=== PATIENT | female | born 1975 | race Caucasian/White ===

== ENCOUNTER 2021-05-10 05:39 | Outpatient (CLI) | payer BC ==
[~2021-05-10] VITALS: Ht 162.6 cm; Wt 80.0 kg
[2021-05-11] MEDS ORDERED: MULT-593 PO (13:55)
[2021-05-11] MEDS ORDERED: ASCO-262 PO (13:55)
[2021-05-11] MEDS ORDERED: CHOL-34 PO (13:55)
[2021-05-11] MEDS ORDERED: OMEP20CA18 PO (13:55)
[2021-05-11] MEDS ORDERED: CYAN250010 PO (13:55)
== END 2021-05-11 14:00 | disposition home or self-care (01) ==
LOC: PREOP 05:39
PROVIDERS: ATTEND Obstetrics & Gynecology
DX: Z01.818 Encounter for other preprocedural examination (principal)

== ENCOUNTER 2021-05-18 05:52 | Day surgery (SDC) | payer BC ==
[~2021-05-18] VITALS: Ht 162.6 cm; Wt 80.0 kg
[2021-05-18] VITALS (19 sets, daily range): BP systolic 77–135; BP diastolic 49–94
[~2021-05-18 05:52] MED LIST: ASCO-262 PO; CHOL-34 PO; CYAN250010 PO; MULT-593 PO; OMEP20CA18 PO
[2021-05-18] MEDS: LACTATED RINGERS 1,000 ML IV PRN ×3 (06:30→09:44)
[2021-05-18 06:38] LABS: BASOPHILS % (AUTO) 1 % (0-10); EOSINOPHILS # (AUTO) 0.1 10^3/uL (0.0-0.3); EOSINOPHILS % (AUTO) 1 % (0-10); HEMATOCRIT 38 % (35-52); HEMOGLOBIN 12.9 g/dL (11.5-16.0); LYMPHOCYTES # (AUTO) 1.6 10^3/uL (1.0-4.0); LYMPHOCYTES % (AUTO) 28 % (12-44); MEAN CORPUSCULAR HEMOGLOBIN 29 pg (25-34); MEAN CORPUSCULAR HGB CONC 34 g/dL (32-36); MEAN CORPUSCULAR VOLUME 85 fL (80-99); MEAN PLATELET VOLUME 8.5 fL (9.0-12.2); MONOCYTES # (AUTO) 0.4 10^3/uL (0.0-1.0); MONOCYTES % (AUTO) 7 % (0-12); NEUTROPHILS # (AUTO) 3.7 10^3/uL (1.8-7.8); NEUTROPHILS % (AUTO) 63 % (42-75); PLATELET COUNT 257 10^3/uL (130-400); WHITE BLOOD COUNT 5.9 10^3/uL (4.3-11.0)
[2021-05-18] MEDS ORDERED: BUPIVACAINE 0.25% 30 ML (SENSORCAINE) VIAL ONE (06:51)
[2021-05-18] MEDS ORDERED: ESTRADIOL VAGINAL CREAM 42.5 GM (ESTRACE) VG ONE (06:51)
[2021-05-18] MEDS ORDERED: fentaNYL INJ 100 MCG/2 ML AMP ONE ×4 (06:53→11:10)
[2021-05-18] MEDS ORDERED: MIDAZOLAM 2 MG/2 ML (VERSED) VIAL ONE (06:53)
--- NOTE | 2021-05-18 07:18 | Progress Note-Pre Operative ---
Pre-Operative Progress Note H&P Reviewed The H&P was reviewed, patient examined and no changes noted. Date Seen by Provider: May 18, 2021 Time Seen by Provider: 07:18 Date H&P Reviewed: May 18, 2021 Time H&P Reviewed: 07:18 Pre-Operative Diagnosis: Dysfunctional uterine bleeding/uterovaginal prolapse/stress urinary inconti TRIP PATIÑO MD May 18, 2021 07:18
--- NOTE | 2021-05-18 07:20 | Progress Note-Post Operative ---
Post-Operative Progess Note Surgeon (s)/Fishing Captain (s) Surgeon TRIP PATIÑO MD Fishing Captain: Jocelyn Pre-Operative Diagnosis Dysfunctional uterine bleeding/uterovaginal prolapse/stress urinary inconti Post-Operative Diagnosis Same with pathology Procedure & Operative Findings Date of Procedure 05/18/21 Procedure Performed/Findings Total laparoscopic hysterectomy with bilateral salpingo-oophorectomy as well as anterior posterior vaginal repairEnterocele repair and with [facility] doing a pubovaginal sling and Cystoscopy Anesthesia Type General Estimated Blood Loss Estimated blood loss (mL): 200cc Specimens/Packing Specimens Removed Uterus fallopian tubes and ovaries Packing: Kerlix gauze in the vagina TRIP PATIÑO MD May 18, 2021 07:20
[2021-05-18] MEDS ORDERED: ESTROGENS CONJ INJECTION 25 MG in WATER (STERILE) FOR INJECTION 5 ML IV ONE (07:30)
[2021-05-18] MEDS ORDERED: ONDANSETRON 4 MG/2 ML (SDV) Z0FRAN IVP PRN (07:30)
[2021-05-18] MEDS ORDERED: BENZOCAINE/MENTHOL (DERMOPLAST) 56 ML CAN TP PRN (07:30)
[2021-05-18] MEDS ORDERED: proPOfol 200 MG/20 ML (DIPRIVAN) VIAL IV ONE (07:44)
[2021-05-18] MEDS ORDERED: LIDOCAINE PF 2% 5 ML (XYLOCAINE) VIAL ONE (07:44)
[2021-05-18] MEDS ORDERED: ONDANSETRON 4 MG/2 ML (SDV) Z0FRAN ONE ×3 (07:44→10:37)
[2021-05-18] MEDS ORDERED: NEOSTIGMINE 3 MG/3 ML VIAL ONE (07:44)
[2021-05-18] MEDS ORDERED: GLYCOPYRROLATE 0.2 MG/ML (ROBINUL) 2 ML VIAL ONE (07:44)
[2021-05-18] MEDS ORDERED: ROCURONIUM 10 MG/ML 5 ML SYRINGE IV ONE (07:44)
--- NOTE | 2021-05-18 08:59 | Progress Note-Pre Operative ---
Pre-Operative Progress Note H&P Reviewed The H&P was reviewed, patient examined and no changes noted. Date Seen by Provider: May 18, 2021 Time Seen by Provider: 08:59 Date H&P Reviewed: May 18, 2021 Time H&P Reviewed: 08:59 Pre-Operative Diagnosis: ROSITA MORALES MD May 18, 2021 08:59
--- NOTE | 2021-05-18 09:01 | Progress Note-Post Operative ---
Post-Operative Progess Note Surgeon (s)/Leader Tier (s) Surgeon ROSITA PINA MD Leader Tier: TRIP PATIÑO MD Pre-Operative Diagnosis PHILLIP Post-Operative Diagnosis SAME Procedure & Operative Findings Date of Procedure 05/18/21 Procedure Performed/Findings PVS AND CYSTOSCOPY Anesthesia Type GENERAL Estimated Blood Loss Estimated blood loss (mL): NEGLIGIBLE Specimens/Packing Specimens Removed NONE Packing: VAG PACK ROSITA PINA MD May 18, 2021 09:01
[2021-05-18] MEDS ORDERED: SEVOFLURANE (ULTANE) 15 ML INHAL SOLN ONE (09:04)
[2021-05-18] MEDS ORDERED: OXYC1TAB87 PO (09:35)
[2021-05-18] MEDS ORDERED: IBUP-1780 PO (09:35)
[2021-05-18] MEDS ORDERED: ESTR1TAB24 PO (09:35)
[2021-05-18] MEDS ORDERED: DOCU100C37 PO (09:35)
[2021-05-18] MEDS ORDERED: WATER (STERILE) FOR INJECTION 10 ML ONE (09:36)
[2021-05-18] MEDS ORDERED: ESTROGENS CONJ IV 25 MG/5 ML (PREMARIN) VIAL ONE ×2 (09:36→12:48)
--- NOTE | 2021-05-18 09:37 | Discharge Inst-Surgical ---
Discharge Inst-Surgical Depart Medication/Instructions New, Converted or Re-Newed RX: Transmitted to Pharmacy Consults/Follow Up Patient Instructions: as directed Orders & Referrals Follow Up Appt: Return to clinic on Friday May 21, 2021 at 9:30 AM for staple removal Call to make follow up appt. for patient in 4 weeks Or before June 01, 2021 Activity: Rest for 24 hours, than as tolerated. Wound Care: May remove Band-Aid tomorrow. Replace as desired. Keep incisions clean and dry. Wash daily with soap and water. Diet: As tolerated may shower or tub bathe as desired. No driving for 24 hours, no alcoholic beverages for 24 hours, and nothing per vagina (no tampons, douching, or intercourse) for 8 weeks. Patient to return to the clinic as soon as possible for: Temperature greater than 101F, Severe Pain, Foul discharge from incision or vagina, Excessive Bleeding (more than a period). Activity Activity as Tolerated: No Diet Discharge Diet: No Restrictions TRIP PATIÑO MD May 18, 2021 09:37
[2021-05-18] MEDS: KETOROLAC 30 MG/ML VIAL IVP SCH ×2 (09:42→15:49)
[2021-05-18] MEDS ORDERED: HYDROmorphone 2 MG/ML VIAL (DILAUDID) ONE (09:48)
[2021-05-18] MEDS: ONDANSETRON 4 MG/2 ML (SDV) Z0FRAN IVP PRN ×2 (10:42→14:37)
[2021-05-18] MEDS: fentaNYL INJ 100 MCG/2 ML AMP IVP PRN ×3 (10:43→12:27)
[2021-05-18] MEDS ORDERED: HYDROmorphone 2 MG/ML VIAL (DILAUDID) IV ONE (11:00)
--- NOTE | 2021-05-18 11:10 | OPERATIVE REPORT ---
DATE OF SERVICE: 05/18/2021 PREOPERATIVE DIAGNOSIS: On my part, stress urinary incontinence. POSTOPERATIVE DIAGNOSIS: On my part, stress urinary incontinence. OPERATION PERFORMED: Pubovaginal sling and cystoscopy. SURGEON: Rosita Pina MD PYTHON ARCHITECT: De Maradiaga MD ANESTHESIA: General. COMPLICATIONS: None. DESCRIPTION OF PROCEDURE: After Dr. Maradiaga performed the first part of his surgery that he will dictate, we inserted a Mackay catheter draining clear urine. I went ahead and passed the Desara sling on both sides using the described technique. The sling was sitting nicely under the mid urethra with no tension, no twist, and passage of a hemostat easily between it and underlying urethra. I removed the Mackay catheter and performed cystoscopy to confirm the integrity of the bladder, ureteral orifices and urethra with no foreign body present anywhere and the presence of the sling under the mid urethra. I left the bladder half full, removed the cystoscope, performed a manual Valsalva maneuver that was negative. Reinserted the Mackay catheter draining clear urine and Dr. Maradiaga proceeded with rest of his surgery that he will dictate. ESTIMATED BLOOD LOSS: On my part, negligible. Job ID: [id number] DocumentID: [id number] Dictated Date: 05/18/2021 09:03:09 Dirt Bike Mechanic Date: 05/18/2021 11:10:13 Dictated By: ROSITA PINA MD
--- NOTE | 2021-05-18 11:51 | OPERATIVE REPORT ---
DATE OF SERVICE: 05/18/2021 PREOPERATIVE DIAGNOSES: Dysfunctional uterine bleeding, uterovaginal prolapse and stress urinary incontinence. POSTOPERATIVE DIAGNOSES: Dysfunctional uterine bleeding, uterovaginal prolapse and stress urinary incontinence. OPERATIVE PROCEDURE: Total laparoscopic hysterectomy with bilateral salpingo-oophorectomy as well as anterior and posterior vaginal repairs with enterocele repair and with Dr. Becerra doing a pubovaginal sling and cystoscopy. OPERATIVE DESCRIPTION: With the patient in the supine position under satisfactory general anesthesia, she was repositioned in dorsal lithotomy position in the [facility] and prepped and draped in the usual fashion for abdominal and vaginal surgery. Weighted speculum placed in posterior fornix of vagina, cervix exposed and grasped anteriorly with single tooth tenaculum. Uterus was sounded to 12 cm with uterine sound. The cervix was then serially dilated with Leonardo dilators to accommodate a Deisy II manipulator, which was placed using a 6 mm x 8 cm uterine probe and a 30 mm colpotomy ring. Sutures of #1 Vicryl placed at 3 and 9 o'clock position of the cervix to affix the uterus to the manipulator. The tenaculum and speculum were removed. Mackay catheter was placed in the urinary bladder. The patient was brought in low dorsal lithotomy position. A 12 mm incision was made 10 cm superior to the umbilicus. Veress needle was placed through that incision into the abdominal cavity. Correct placement was confirmed with water drop test. The abdomen was then insufflated with 2.4 liters of carbon dioxide. The Veress needle was removed and a 12 mm Optiview laparoscopic port was placed. Abdominal wall was transilluminated and ports of 8 mm were placed incisions of those sizes 8 cm lateral to the umbilicus. All three port sites were infiltrated with 0.25% Marcaine with epinephrine prior to incision. The patient was placed in Trendelenburg allowing the bowel was spill out of the pelvis. The da Wero column was advanced on the patient and docked and operative instrument placed in right and left lateral ports and I retired to the da Wero console. At the console using the vessel sealer on the right and a bipolar fenestrated grasper on the left, the pelvis was first examined. There were some adhesions of the sigmoid to the left pelvic brim. These were taken down to allow full access to the left IP ligament. Both ovaries were somewhat atretic appearing. The fallopian tubes were normal. The uterus was somewhat large and boggy, but otherwise normal. There was evidence of endometriosis in the cul-de-sac and the right ovary was adherent to the ovarian fossa due to endometriosis. Laparoscope was rotated. The appendix was seen. It was a normal vermiform appendix. Laparoscope was brought back to the pelvis. The right ureter was identified and seemed to peristalse, it was relatively close to the IP ligament, but adequate clearance for the procedure. The IP ligament was clamped, cauterized and divided with the vessel sealer that was continued stepwise across the mesovarium to the round ligament, across the round ligament to the broad ligament down the broad ligament to the cardinal ligament. Same procedure performed on the left, the left ureter could barely be seen. It was well away from the areas of dissection with both adnexa freed, the anterior lower uterine segment peritoneum was divided using monopolar noemy in place of the vessel sealer. The bladder was dissected down off the lower uterine segment and colpotomy incision was started at 12 o'clock position onto the colpotomy ring. That incision was continued circumferentially until the entire colpotomy ring was exposed. This allowed for removal of the uterus with tubes and ovaries still attached through the vagina. Vaginal cuff was now closed with a single V-Loc barbed suture starting from the right angle of the vagina and across the left in the usual manner. Good hemostasis and good reapproximation was achieved. At this point, the laparoscopic portion of the procedure was complete. The operative instruments removed under direct vision. The operative ports were removed. The abdomen was evacuated of the insufflating gas in the process of removing the ports. The skin incisions were stapled. The fascia at the supraumbilical incision was closed with [id number] suture of 2-0 Vicryl. The patient was now repositioned for the vaginal portion of the surgery. The weighted speculum placed in posterior fornix of vagina. Anterior repair was affected by placing Larisa clamps on the anterior vaginal wall near the midline. An incision was made in the midline with Metzenbaum scissors. That incision was continued vertically from approximately 1.5 cm from the urethral meatus to the apex of the vagina. The bladder wall was carefully dissected off the muscularis of the vagina back to pubic rami bilaterally. The bladder wall and endopelvic fascia were then plicated with 2-0 Vicryl sutures, elevating the bladder and lengthening the urethra. At this point, Dr. Becerra assumed care of the patient. I remained to assist. Dr. Becerra performed a pubovaginal sling and cystoscopy and then I resumed care of the patient. Dr. Becerra leave Mackay catheter to dependent drainage. Both ureters were seemed to efflux urine into the bladder according to Dr. Becerra. Redundant anterior vaginal muscularis mucosa was removed sharply. Vaginal wall was closed with running locked suture of 2-0 Vicryl. Hemostasis was complete. Good support was evident. Posterior repair was now performed by placing Larisa clamps on the 5 and 7 o'clock position of the introitus on the hymenal ring and the perineal body. An inverted triangle skin was removed the perineal body and upright triangle from the posterior vaginal floor. Using as the base of the triangle the two Larisa clamps, the rectovaginal space was entered sharply and dissected bluntly to the apex of the vagina. It was explored for an enterocele, there was one that was reduced and then plicated with two sutures of 2-0 Vicryl in a pursestring fashion obliterating the enterocele. The rectovaginal space was then obliterated also with 2-0 Vicryl and the perineal body was restored with 2-0 Vicryl and then redundant posterior vaginal wall muscularis mucosa was removed sharply. Vaginal wall was closed with running locked suture of 3-0 Vicryl Rapide in the usual manner. Good support was evident. Good reapproximation was evident. Digital rectal exam confirmed no stricture or stenosis of the rectum. The incisions in the vagina were examined for hemostasis. That being complete, the vagina was filled with Estrace vaginal cream and a pack of Kerlix gauze was placed. Sponge and needle counts were correct. Blood loss was around 200 mL. The Mackay catheter continued to drain clear yellow urine. The patient was now uneventfully awakened from her general anesthesia and transferred to recovery room in stable condition. Blood loss for the case was around 200 mL. Job ID: [id number] DocumentID: [id number] Dictated Date: 05/18/2021 09:06:42 Lean Facilitator Date: 05/18/2021 11:50:33 Dictated By: TRIP PATIÑO MD
--- NOTE | 2021-05-18 13:14 | Anesthesia-General Post-Op ---
General Patient Condition Mental Status/LOC: Same as Preop Cardiovascular: Satisfactory Nausea/Vomiting: Absent Respiratory: Satisfactory Pain: Controlled Complications: Absent Post Op Complications Complications None Follow Up Care/Instructions Patient Instructions None needed. Anesthesia/Patient Condition Patient Condition Patient is doing well, no complaints, stable vital signs, no apparent adverse anesthesia problems. No complications reported per nursing. MICHAEL KERNS CRNA May 18, 2021 13:14
[2021-05-18] MEDS: oxyCODONE/APAP 5/325MG (PERCOCET 5) TABLET PO PRN ×3 (13:31→23:13)
[2021-05-18] MEDS: D5 LR IV SOLUTION 1,000 ML IV SCH ×3 (14:27→22:39)
[2021-05-18] MEDS: DOCUSATE SODIUM 100 MG (COLACE) CAP PO SCH (21:00)
[2021-05-19] VITALS: BP 131/80
[2021-05-19 03:17] VITALS: BP 128/67
[2021-05-19] MEDS: ONDANSETRON 4 MG/2 ML (SDV) Z0FRAN IVP PRN ×2 (03:29→06:31)
[2021-05-19 07:57] VITALS: BP 136/72
[2021-05-19] MEDS ORDERED: ONDANSETRON 4 MG/2 ML (SDV) Z0FRAN IVP ONE (08:15)
[2021-05-19] MEDS ORDERED: PANTOPRAZOLE 40 MG (PROTONIX) VIAL IV ONE (08:15)
[2021-05-19] MEDS ORDERED: ONDANSETRON 4 MG/2 ML (SDV) Z0FRAN ONE (08:27)
[2021-05-19] MEDS ORDERED: PROCHLORPERAZINE 10 MG/2ML INJ (COMPAZINE) IV PRN (08:30)
[2021-05-19] MEDS: KETOROLAC 30 MG/ML VIAL IVP SCH (08:31)
[2021-05-19] MEDS: LACTATED RINGERS 1,000 ML IV PRN (08:38)
--- NOTE | 2021-05-19 08:45 | Progress Note ---
Standard Progress Note Progress Notes/Assess & Plan Date Seen by a Provider: May 19, 2021 Time Seen by a Provider: 08:44 Progress/Assessment & Plan This patient is without complaint. She is ambulating, tolerating oral intake to some extent. She is having issues with nausea that seem to be responding to antiemetics. Patient has not voided yet Vital Signs Date Time Temp Pulse Resp B/P (MAP) Pulse Ox O2 Delivery O2 Flow Rate FiO2 05/19/21 03:17 36.7 105 18 128/67 (87) 95 Room Air 05/19/21 00:00 36.7 107 20 131/80 (97) 97 Room Air 05/18/21 23:43 36.7 05/18/21 21:00 95 Room Air 05/18/21 20:00 37.1 115 18 127/70 (89) 95 Room Air 05/18/21 15:48 36.2 102 18 135/82 (99) 98 Room Air 05/18/21 14:47 Room Air 05/18/21 14:27 107 18 110/73 (85) 98 Room Air 05/18/21 13:30 105 16 117/68 (84) 99 Room Air 05/18/21 12:30 104 18 112/65 (81) 100 Room Air 05/18/21 12:00 98 16 114/66 (82) 97 Room Air 05/18/21 11:30 92 16 111/65 (80) 99 Room Air 05/18/21 11:15 100 18 105/66 (79) 99 Room Air 05/18/21 11:00 99 18 106/61 (76) 100 Room Air 05/18/21 10:45 82 16 102/60 (74) 99 Room Air 05/18/21 10:30 98 18 107/67 (80) 97 Room Air 05/18/21 10:10 35.7 79 16 108/63 (78) 99 Room Air 05/18/21 10:05 Room Air 05/18/21 10:05 36.2 20 103/65 (78) 100 Room Air 05/18/21 09:55 20 101/67 (78) 100 Room Air 05/18/21 09:55 Room Air 05/18/21 09:52 35.7 05/18/21 09:52 35.7 05/18/21 09:45 20 117/70 (86) 100 Room Air 05/18/21 09:45 Room Air 05/18/21 09:42 35.7 05/18/21 09:35 OxyMask 2 05/18/21 09:35 20 101/55 (70) 100 OxyMask 2 05/18/21 09:20 OxyMask 2 05/18/21 09:20 18 80/50 (60) 100 OxyMask 10 05/18/21 09:12 36.2 20 77/49 (58) 99 OxyMask 10 05/18/21 09:12 OxyMask 10 I & O 05/19/21 07:00 Intake Total 3650 ml Output Total 3950 ml Balance -300 ml Vital signs are stable. Patient is afebrile. The abdomen is benign. Extremities show no clubbing or cyanosis. There is no Homans' sign. Pelvic exam is deferred Assessment and plan Postoperative day #1 doing well plan is for routine convalescent care and supportive care for her nausea with plans to allow discharge home when patient is ambulating, voiding, tolerating oral intake well and her pain is controlled Final Diagnosis Uterovaginal prolapse/menorrhagia/stress urinary incontinence TRIP PATIÑO MD May 19, 2021 08:45
[2021-05-19] MEDS ORDERED: DOCUSATE SODIUM 100 MG (COLACE) CAP PO SCH (09:00)
[2021-05-19] MEDS ORDERED: ESTRADIOL 1 MG TAB (ESTRACE) PO SCH (09:00)
[2021-05-19] MEDS ORDERED: SCOPOLAMINE 1.5 MG (TRANSDERM-SCOP) PATCH TD ONE (09:30)
[2021-05-19] MEDS ORDERED: CIPR-225 PO (14:31)
--- NOTE | 2021-05-19 17:21 | Anesthesia-General Post-Op ---
General Patient Condition Mental Status/LOC: Same as Preop Cardiovascular: Satisfactory Nausea/Vomiting: Absent Respiratory: Satisfactory Pain: Controlled Complications: Absent Post Op Complications Complications None Follow Up Care/Instructions Patient Instructions None needed. Anesthesia/Patient Condition Patient Condition Patient is doing well, no complaints, stable vital signs, no apparent adverse anesthesia problems. No complications reported per nursing. VERNA FOFANA CRNA May 19, 2021 17:21
[2021-05-23] MEDS ORDERED: IBUPROFEN 800 MG (MOTRIN) TAB PO SCH (12:00)
== END 2021-05-19 15:00 | disposition home or self-care (01) ==
LOC: SDC 05:52 → WS 10:10 → SDC 05-19 15:00
PROVIDERS: ATTEND Obstetrics & Gynecology
DX: D25.1 Intramural leiomyoma of uterus (principal); N80.0 Endometriosis of uterus; N72 Inflammatory disease of cervix uteri; N81.4 Uterovaginal prolapse, unspecified; N39.3 Stress incontinence (female) (male); N83.292 Other ovarian cyst, left side; N83.291 Other ovarian cyst, right side; N83.8 Other noninflammatory disorders of ovary, fallopian tube and broad ligament; N73.6 Female pelvic peritoneal adhesions (postinfective); Z79.899 Other long term (current) drug therapy
CPT/HCPCS: 51992; 57265; 58571; 84703; 85025; 87081; 94664; C1771; 36415